=== PATIENT | female | born 1985 | race Caucasian/White ===

== ENCOUNTER 2016-12-15 10:42 | Outpatient (CLI) | payer OTHER ==
[~2016-12-15] VITALS: Ht 172.7 cm; Wt 104.0 kg
[2016-12-15 11:14] VITALS: Ht 172.7 cm; Wt 104.0 kg
[2016-12-15 11:15] VITALS: BP 134/73; PULSE 90; RESP 18
--- NOTE | 2016-12-15 12:19 | RADRPT ---
PROCEDURE: US OB with biophysical profile. CLINICAL INDICATION: DFM TECHNIQUE: Multiple sonographic images of the pelvis were obtained. The images were reviewed on a PACS workstation. COMPARISON: No prior studies are available for comparison. FINDINGS: The cervix is closed with a length of . There is a posterior grade 0 placenta. There is a single viable intrauterine gestation. Cardiac activity is present with 146 beats per min natalie. There is a cephalic presentation. Measurements were made in order to determine age. The results are as follows: BPD =9.03 cm: 36 weeks 4 days. HC =32.52 cm: 36-week 6 days. AC =32.92 cm: 36 weeks 6 days. FL =7.15 cm: 36 weeks 4 days.. Estimated gestational age of approximately 36 weeks 5 days plus or minus 2 weeks 4 days. . The estimated date of delivery is 01/07/2017.. The EFW = 3023 g plus or minus 453.38 g. . The heart, intracranial contents, spine, stomach, kidneys, bladder and cord insertion are visualized and without abnormality. The placenta is posterior, grade grade 1. There is no evidence for an abruption or placenta previa. Amniotic fluid volume is normal. And amniotic fluid index was not performed. There are no adnexal masses.. Biophysical profile:2/2 Gross body movement:2/2 tone:2/2 breathin/2 Amniotic fluid index:2/2 Biophysical profile total: 10/25 IMPRESSION: 1. A single viable fetus is identified. 2. AUA: 36 weeks 5 days plus or minus 2 weeks 4 days. 3. JUDSON (AUA): January 07, 2017. 3. Normal biophysical profile. RPTAT:AAJJ Physician Beena Date Time Electronically viewed and signed by Physician Beena on 12/15/2016 12:19 HERON/
--- NOTE | 2016-12-15 12:19 | RADRPT ---
PROCEDURE: US OB. CLINICAL INDICATION: DFM TECHNIQUE: Multiple sonographic images of the pelvis were obtained. The images were reviewed on a PACS workstation. COMPARISON: No prior studies are available for comparison. FINDINGS: The cervix is closed with a length of . There is a posterior grade 0 placenta. There is a single viable intrauterine gestation. Cardiac activity is present with 146 beats per min [place]. There is a cephalic presentation. Measurements were made in order to determine age. The results are as follows: BPD =9.03 cm: 36 weeks 4 days. HC =32.52 cm: 36-week 6 days. AC =32.92 cm: 36 weeks 6 days. FL =7.15 cm: 36 weeks 4 days.. Estimated gestational age of approximately 36 weeks 5 days plus or minus 2 weeks 4 days. . The estimated date of delivery is 01/07/2017.. The EFW = 3023 g plus or minus 453.38 g. . The heart, intracranial contents, spine, stomach, kidneys, bladder and cord insertion are visualized and without abnormality. The placenta is posterior, grade grade 1. There is no evidence for an abruption or placenta previa. Amniotic fluid volume is normal. And amniotic fluid index was not performed. There are no adnexal masses.. Biophysical profile:2/2 Gross body movement:2/2 tone:2/2 breathin/2 Amniotic fluid index:2/2 Biophysical profile total: 10/25 IMPRESSION: 1. A single viable fetus is identified. 2. AUA: 36 weeks 5 days plus or minus 2 weeks 4 days. 3. JUDSON (AUA): January 07, 2017. 3. Normal biophysical profile. RPTAT:AAJJ Physician Beena Date Time Electronically viewed and signed by Physician Beena on 12/15/2016 12:18 HERON/
--- NOTE | 2016-12-15 13:38 | CONS ---
Date/Time of Note Date/Time of Note DATE: 12/15/16 TIME: 13:25 Consultation Date/Type/Reason Admit Date/Time December 15, 2016 OB triage consult. This patient is a 31 years old 3 para 2 0 with estimated date of confinement of January 09, 2017 which makes her 36 weeks and 3 days today. She came to triage complaining of decreased movement since this morning. On examination she is a well-developed well-nourished lady. With fairly rare contractions every 8-10 minutes her general vital signs appear to be normal with blood pressure 134/73 pulse rate of 90 respiration 18 temperature 98. On pelvic examination the cervix is closed and posterior freely thick head at - 2 station membranes are intact. Subjective hx not possible: pt non-verbal Constitutional: No chills, No diaphoresis, No disoriented, No febrile, No improved, No no complaints, No other, No poor po, No requiring IVF, No requiring O2 Eyes: No discharge, No no complaints, No other, No pain, No redness, No visual change ENT: No bleeding, No congestion, No discharge, No dysphagia, No no complaints, No other, No pain, No sore throat Respiratory: No cough, No no complaints, No other, No pain, No pleuritic pain, No shortness of breath, No sputum, No wheezing Cardiovascular: No chest pain, No edema, No lightheadedness, No no complaints, No orthopenea, No other, No palpitations, No paroxysmal nocturnal dyspnea Gastrointestinal: No blood, No constipation, No decreased appetite, No diarrhea , No flatus, No nausea, No no complaints, No other, No pain, No passing stool, No vomiting Genitourinary: other (As I mentioned on pelvic exam the cervix was closed and long), No bleeding, No discharge, No dysuria, No flank pain, No hematuria, No no complaints Musculoskeletal: No back pain, No bone/joint pain, No neck pain, No no complaints, No other, No restricted range of motion, No swelling Skin: No bruising, No erythema, No laceration, No no complaints, No other, No pruritis, No rash, No skin lesions Neurologic: No confusion, No dizziness, No focal-weakness, No headache, No no complaints, No other, No seizure, No syncope Endocrine: other (Knee jerk reflexes are normal), No dry skin, No no complaints, No polydypsia, No polyuria, No temp intolerance Additional Comments Ultrasound study report is a single viable intrauterine gestation with heart total 1 46 bpm placenta was posterior no evidence of previa the estimated age was 36 weeks and 5 days 2 weeks estimated date of confinement was estimated weight was 3023 452 grams her biophysical profile 10/25 Disposition. We D normal finding lack of evidence of labor and closed cervix patient was discharged home. Advised to do kick count and return to the triage area for any evidence of labor or rupture of membranes or low movement. Social History Smoking Status: Never smoker Exam/Review of Systems Vital Signs Vitals Vital Signs Date Time Temp Pulse Resp B/P Pulse Ox O2 Delivery O2 Flow Rate FiO2 12/15/16 11:15 98.0 90 18 134/73 ITALO ZHU MD Dec 15, 2016 13:38
== END 2016-12-15 13:29 | disposition home or self-care (01) ==
LOC: OBT 10:42 → L-D 10:42 → OBT 13:29
PROVIDERS: ATTEND Obstetrics & Gynecology
DX: O36.8130 Decreased fetal movements, third trimester, not applicable or unspecified (principal); Z3A.36 36 weeks gestation of pregnancy
CPT/HCPCS: 76815; 76818; Z7500; G0463

== ENCOUNTER 2017-01-07 06:00 | Inpatient (IN) | payer OTHER ==
[~2017-01-07] VITALS: Ht 172.7 cm; Wt 105.0 kg
[2017-01-07 06:29] VITALS: Ht 172.7 cm; Wt 105.0 kg
[2017-01-07 06:31] VITALS: BP 116/77; PULSE 96; RESP 18
[2017-01-07] MEDS: LACTATED RINGER'S 1,000 ML IV SCH ×2 (06:54→16:16)
[2017-01-07] MEDS ORDERED: MISOPROSTOL 200 MCG TAB PR PRN ×2 (07:00→23:00)
[2017-01-07] MEDS ORDERED: BUTORPHANOL 2 MG INJ IV PRN ×2 (07:00)
[2017-01-07] MEDS ORDERED: CARBOPROST 250 MCG INJ IM PRN ×2 (07:00→23:00)
[2017-01-07] MEDS ORDERED: OXYTOCIN 30 UNITS/LR 500 ML IV SCH ×3 (07:00→08:30)
[2017-01-07] MEDS ORDERED: AMPICILLIN 2 GM/NS (PMX) 100 ML IV ONE (07:00)
[2017-01-07] MEDS ORDERED: OXYTOCIN 30 UNITS/LR 500 ML IV PRN ×2 (07:00→23:00)
[2017-01-07] MEDS ORDERED: IBUPROFEN 600 MG TAB PO PRN (07:00)
[2017-01-07] MEDS ORDERED: LACTATED RINGER'S 1,000 ML IV PRN (07:00)
[2017-01-07] MEDS ORDERED: LIDOCAINE 1% (MPF) 30 ML INJ INJ PRN (07:00)
[2017-01-07] MEDS ORDERED: METHYLERGONOVINE 0.2 MG INJ IM PRN ×2 (07:00→23:00)
[2017-01-07 07:31] LABS: BASOPHILS % 0.4 % (0.0-2.0); EOSINOPHILS % 0.6 % (0.0-7.0); HEMOGLOBIN 12.6 g/dl (12.0-16.0); LYMPHOCYTES # 1.3 10^3/ul (0.8-2.9); MEAN CORPUSCULAR HGB CONC 33.2 g/dl (32.0-37.0); MEAN CORPUSCULAR VOLUME 87.6 fl (82.0-101.0); MEAN PLATELET VOLUME 11.1 fl (7.4-10.4); MONOCYTE # 0.5 10^3/ul (0.3-0.9); MONOCYTES % 8.1 % (0.0-11.0); NEUTROPHIL # 4.7 10^3/ul (1.6-7.5); NEUTROPHILS % 70.4 % (39.0-77.0); PLATELET COUNT 170 10^3/UL (140-415); RED BLOOD COUNT 4.34 10^6/ul (4.20-5.40); RED CELL DISTRIBUTION WIDTH 13.9 % (11.5-14.5); WHITE BLOOD COUNT 6.7 10^3/ul (4.8-10.8)
[2017-01-07 07:52] LABS: INR 0.91; PROTIME 12.3 Sec (12.2-14.2)
[2017-01-07 07:53] LABS: PARTIAL THROMBOPLASTIN TIME 30.4 Sec (25.0-35.0)
--- NOTE | 2017-01-07 09:41 | RADRPT ---
PROCEDURE: US OB. CLINICAL INDICATION: Macrosomia TECHNIQUE: Multiple sonographic images of the pelvis were obtained. COMPARISON: No prior studies are available for comparison. FINDINGS: There is a single live intrauterine gestation gestational age of 37 weeks 6 days. Minimal amniotic fluid. Estimated weight 3293 g +/- 493.95 g Estimated day of delivery 01/22/2017 Cardiac activity is present with 146.25 beats per minute. There is a vertex presentation. The placenta is posterior grade 1. Measurements were made in order to determine age. The results are as follows: BPD =9.3 cm HC =33.53 cm AC =33.74 cm FL =7.34 cm. HC/AC = 0.99 Anatomic evaluation is limited due to lack of amniotic fluid. There are no adnexal masses. IMPRESSION: 1. Single viable intrauterine gestation of approximately 37 weeks 6 days. The estimated date of del rojelio is 01/22/2017. 2. Estimated weight 3293 g +/- 493.95 g RPTAT: HH Physician Kelsie Date Time Electronically viewed and signed by Physician Kelsie on 01/07/2017 09:41 YONI/
[2017-01-07] MEDS: AMPICILLIN 1 GM/NS (PMX) 50 ML IV SCH ×2 (12:00→16:33)
[2017-01-07 17:25] LABS: AADO2 Cord Arterial 52.5 mmHg; Arterial Cord Blood pCO2 62.4 mmHG (25-50); CBA Base Excess -5.6 mmol/L; CBA Oxygen Sat 45.9 mmHG; CBA Total Hemglobin 18.4 g/dl; Cord Blood Arterial pO2 22.5 mmHG (15.0-45.0); Fraction OxyHgb Cord Arterial 44.8 %; MODE ROOM AIR; MetHgb Cord Arterial 1.3 %; Sample Type CBA
[2017-01-07 17:29] LABS: CBV Base Excess -6.1 mmol/L; CBV COHb 1.8 %; CBV Oxygen Sat 83.5 mmHG; CBV Total Hemglobin 17.8 g/dl; Cord Blood Venous AADO2 69.3 mmHg; Cord Blood Venous pO2 37.6 mmHG (15.0-45.0); Fraction OxyHgb Cord Venous 81.4 %; MODE ROOM AIR; MetHgb Cord Venous 0.7 %; Sample Type CBV
[2017-01-07 21:40] VITALS: BP 111/65; PULSE 64; RESP 17
[2017-01-07] MEDS ORDERED: LACTATED RINGER'S 1,000 ML IV* SCH (22:31)
[2017-01-07] MEDS ORDERED: OXYCODONE/ASPIRIN (4.88/325) TAB PO PRN ×2 (23:00)
[2017-01-07] MEDS ORDERED: WITCH HAZEL/GLYCERIN PAD PR PRN (23:00)
[2017-01-07] MEDS ORDERED: DIBUCAINE 1% 30 GM OINT PR PRN (23:00)
[2017-01-07] MEDS ORDERED: METHYLERGONOVINE 0.2 MG TAB PO PRN (23:00)
[2017-01-07] MEDS ORDERED: SENNA/DOCUSATE NA (8.6MG/50MG) TAB PO PRN (23:00)
[2017-01-07] MEDS ORDERED: LANOLIN 7 GM TUBE TOP PRN (23:00)
[2017-01-07] MEDS ORDERED: ACETAMINOPHEN 325 MG TAB PO PRN (23:00)
[2017-01-07] MEDS ORDERED: BENZOCAINE 20% 56 ML SPRAY TOP PRN (23:00)
[2017-01-07] MEDS: IBUPROFEN 600 MG TAB PO SCH (23:10)
[2017-01-08] VITALS: BP 115/77; PULSE 60; RESP 17
[2017-01-08 04:00] VITALS: BP 115/72; PULSE 77; RESP 18
[2017-01-08] MEDS: IBUPROFEN 600 MG TAB PO SCH ×4 (05:39→23:35)
[2017-01-08] MEDS: OXYTOCIN 30 UNITS/LR 500 ML IV SCH ×2 (07:36→07:37)
[2017-01-08 09:06] VITALS: BP 111/57; PULSE 77; RESP 19
[2017-01-08 15:30] VITALS: BP 98/68; PULSE 70; RESP 18
[2017-01-08] MEDS ORDERED: BISACODYL 10 MG SUPP PR ONE (16:30)
[2017-01-08] MEDS ORDERED: MAGNESIUM HYDROXIDE 30ML CUP PO ONE (16:30)
[2017-01-08 20:00] VITALS: BP 116/63; PULSE 83; RESP 18
--- NOTE | 2017-01-08 23:27 | PREOPHP ---
DATE OF ADMISSION: 01/07/2017 HISTORY OF PRESENT ILLNESS: This is a 31-year-old lady, 3, para 2, EDC January 09, 2017 at 39-5/7 weeks, consulted and admitted in early labor and for Pitocin augmentation. She had care in my [place] office. The care was uneventful. PAST PERSONAL HISTORY: No history of diabetes, TB, asthma. ALLERGIES: NONE. SOCIAL HISTORY: Patient does not smoke. She does not drink. MEDICATIONS: She does not take any drugs, except her iron and vitamins. [employer] HISTORY: She had menarche at the age of 12, every 28 days interval, 3-4 days duration and moderate in amount. FAMILY HISTORY: Noncontributory. OB HISTORY: She is 3, para 2. First delivery in 2009; second, 2012, all normal deliveries. REVIEW OF SYSTEMS: CARDIOVASCULAR: No chest pain. LUNGS: No cough. GASTROINTESTINAL: No diarrhea, no vomiting. GENITOURINARY: No dysuria. PHYSICAL EXAMINATION: GENERAL: Conscious, coherent lady, and not acute distress. VITAL SIGNS: Her blood pressure 120/80, pulse rate 80 per minute, respirations 16 per minute. BREASTS: Within normal limits. ABDOMEN: Soft. No organomegaly. Fundic height 38 cm. heart tones 140 per minute. PELVIC EXAM: On admission revealed the cervix to be 2-3 cm dilated, 100 percent effaced, station -1, in cephalic presentation, with the bag of water intact. EXTREMITIES: No pedal edema. ADMITTING DIAGNOSES: Thirty-nine and 5/7 weeks intrauterine , in early labor. COURSE IN ED: Patient had an ultrasound done, and then she was given Pitocin augmentation, and patient progressed well. She had artificial rupture of membranes. scalp electrode and IUPC was inserted at 1621, and she progressed well. She did not receive any labor epidural. She received IV pain medication. Dictated By: Holli Reese MD /christina/sabiha /Document#: [id number] CC: Holli Reese MD;*EndCC* MTDD
--- NOTE | 2017-01-08 23:33 | OPR ---
DATE OF OPERATION: 01/07/2017 INDICATIONS: This is a 31-year-old lady, 3, para 2, at 39-5/7 weeks, admitted in early labor and for Pitocin augmentation. HISTORY OF THE PRESENT ILLNESS: See dictated History and Physical. PHYSICAL EXAMINATION: See dictated History and Physical. ADMITTING DIAGNOSIS: 39 and 5/7 weeks, in early labor. OPERATIVE PROCEDURE: She had a ultrasound done for EFW, and she was given Pitocin augmentation. Patient refused labor epidural. She received some Stadol. Patient progressed well. At the time of my visit, I did activate rupture of membrane. scalp electrode and IUPC was inserted. She delivered a healthy baby boy, Apgars 9 and 9 on 01/07/2017, weighing 7 pounds, 6 ounces, 1704 grams, over 21 inches long. Dictated By: Holli Reese MD /christina/sabiha /Document#: [id number] CC: Holli Reese MD
[2017-01-09 04:00] VITALS: BP 122/70; PULSE 85; RESP 18
[2017-01-09] MEDS: IBUPROFEN 600 MG TAB PO SCH ×2 (06:02→11:32)
[2017-01-09 08:30] VITALS: BP 128/72; PULSE 70; RESP 18
[2017-01-09] MEDS ORDERED: DIPHTH/TET/ACEL PERTUSS (ADULT) 0.5 ML VIAL IM* ONE (09:00)
[2017-01-09 16:30] VITALS: BP 117/64; PULSE 76; RESP 19
== END 2017-01-09 17:55 | disposition home or self-care (01) | DRG 775 ==
LOC: L-D 06:10 → PP1 21:44
PROVIDERS: ADMIT Obstetrics & Gynecology; ATTEND Obstetrics & Gynecology
PROC: 3E0P3VZ Introduction of Hormone into Female Reproductive, Percutaneous Approach (ICD-10-PCS; 2017-01-07)
PROC: 10E0XZZ Delivery of Products of Conception, External Approach (ICD-10-PCS; principal; 2017-01-07 06:00)
DX: O80 Encounter for full-term uncomplicated delivery (principal); Z37.0 Single live birth; Z3A.39 39 weeks gestation of pregnancy
CPT/HCPCS: 36415; 36600; 76815; 82803; 85014; 85018; 85025; 85610; 85730; 86592; 86900; 86901; 87340; 90715; 99464; J0290; J2590; J7120

== ENCOUNTER 2017-10-14 11:18 | Emergency (ER) | END 2017-10-14 15:41 | disposition home or self-care (01) ==

== ENCOUNTER 2018-08-04 13:03 | Inpatient (IN) | payer OTHER ==
[~2018-08-04] VITALS: Ht 172.7 cm; Wt 103.0 kg
[~2018-08-04 13:03] MED LIST: ACET500C5 PO; CEPH-443 PO
[2018-08-04 13:44] VITALS: BP 120/76; PULSE 78; RESP 18
[2018-08-04 13:46] VITALS: Ht 172.7 cm; Wt 103.0 kg
[2018-08-04] MEDS: LACTATED RINGER'S 1,000 ML IV SCH ×3 (13:57→19:50)
[2018-08-04] MEDS ORDERED: METHYLERGONOVINE 0.2 MG INJ IM PRN ×2 (14:00→21:00)
[2018-08-04] MEDS ORDERED: OXYTOCIN 30 UNITS/LR 500 ML IV PRN ×2 (14:00→21:00)
[2018-08-04] MEDS ORDERED: LIDOCAINE 1% (MPF) 30 ML INJ INJ PRN (14:00)
[2018-08-04] MEDS ORDERED: BUTORPHANOL 2 MG INJ IV PRN ×2 (14:00)
[2018-08-04] MEDS ORDERED: MISOPROSTOL 200 MCG TAB PR PRN ×2 (14:00→21:00)
[2018-08-04] MEDS ORDERED: AMPICILLIN 2 GM/NS (PMX) 100 ML IV ONE (14:00)
[2018-08-04] MEDS ORDERED: IBUPROFEN 600 MG TAB PO PRN (14:00)
[2018-08-04] MEDS ORDERED: OXYTOCIN 30 UNITS/LR 500 ML IV SCH ×4 (14:00→20:59)
[2018-08-04] MEDS ORDERED: CARBOPROST 250 MCG INJ IM PRN ×2 (14:00→21:00)
--- NOTE | 2018-08-04 15:46 | PREAC ---
Date/Time of Note Date/Time of Note DATE: 08/04/18 TIME: 15:45 Anesthesia Eval and Record Evaluation Time Pre-Procedure Interview DATE: 08/04/18 TIME: 15:45 Age 33 Sex female NPO: 8 hrs Preoperative diagnosis in labor Planned procedure Labor epidural Past Medical History Past Medical History: None Surgery & Anesthesia Issues No known issue Meds Anticoagulation: No Beta Charlette within 24 hr: No Reason Beta Charlette not given: Pt. not on B-Charlette Active Scripts Acetaminophen* (Tylophen*) 500 Mg Capsule, 1 CAP PO Q6H PRN for PAIN AND OR YASMEEN VATED TEMP, #20 CAP Prov:QUANG CABA PA-C 10/14/17 Cephalexin* (Keflex*) 500 Mg Capsule, 500 MG PO QID for 7 Days, CAP Prov:QUANG CABA PA-C 10/14/17 Current Medications Lactated Ringer's 1,000 ml @ 125 mls/hr Q8H IV Last administered on 08/04/18at 13:57; Admin Dose 125 MLS/HR; Start 08/04/18 at 13:47 Ampicillin 50 ml @ 100 mls/hr Q4H IV ; Start 08/04/18 at 18:00 Butorphanol Tartrate (Stadol) 1 mg Q2H PRN IV .PAIN SCALE 1-5; Start 08/04/18 at 14:00 Butorphanol Tartrate (Stadol) 2 mg Q2H PRN IV .PAIN SCALE 6-10; Start 08/04/18 at 14:00 Lidocaine (Xylocaine 1% (Mpf)) 30 ml ONCE PRN INJ .EPISIOTOMY; Start 08/04/18 at 14:00 Oxytocin/Lactated Ringer's 500 ml @ 500 mls/hr ONCE POST IV ; Start 08/04/18 at 14:00 Oxytocin/Lactated Ringer's 500 ml @ 125 mls/hr POST IV ; Start 08/04/18 at 14:00 Ibuprofen (Motrin) 600 mg ONCE PRN PO .PAIN 1-5; Start 08/04/18 at 14:00 Oxytocin/Lactated Ringer's 500 ml @ 0 mls/hr ONCE PRN IV .VAGINAL BLEEDING; Start 08/04/18 at 14:00 Methylergonovine Maleate (Methergine) 0.2 mg ONCE PRN IM .VAGINAL BLEEDING; Start 08/04/18 at 14:00 Carboprost Tromethamine (Hemabate) 250 mcg ONCE PRN IM .VAGINAL BLEEDING; Start 08/04/18 at 14:00 Misoprostol (Cytotec) 1,000 mcg ONCE PRN MI .VAGINAL BLEEDING; Start 08/04/18 at 14:00 Oxytocin/Lactated Ringer's 500 ml @ 0 mls/hr FOR AUGMENTATION IV ; Start 08/04 at 16:00 Meds reviewed: Yes Allergies Coded Allergies: No Known Allergy (Unverified , 12/15/16) Allergies Reviewed: Yes Labs/Studies Labs Reviewed: Reviewed by anesthesiologist Result Diagram: 08/04/18 1342 Laboratory Tests 08/04/18 13:42 test: Positive Pre-procedure Exam Last vitals Vital Signs Date Temp Pulse Resp B/P (MAP) Pulse Ox O2 O2 Flow FiO2 Time Delivery Rate 08/04/18 98.3 78 18 120/76 13:44 (91) Airway: Adequate mouth opening Mallampati: Mallampati II Teeth: Normal Lung: Normal Heart: Normal ASA Physical Status ASA physical status: 2 Emergency: None Planned Anesthetic Neuraxial: Epidural Pre-operative Attestations Prior to commencing anesthesia and surgery, the patient was re-evaluated, there was verification of: *The patient's identity *The results of appropriate recent lab work and preoperative vital signs *The above evaluation not changing prior to induction *Anesthetic plan, risk benefits, alternative and complications discussed with patient/family; questions answered; patient/family understands, accepts and wishes to proceed. VIVIANA SHAW MD August 04, 2018 15:46
[2018-08-04] MEDS ORDERED: FENTAnyl 2MCG/ML-ROPIV 0.2% 100 ML ONE (15:48)
[2018-08-04] MEDS ORDERED: FENTAnyl 2MCG/ML-ROPIV 0.2% 100 ML BAG EPI SCH (16:00)
[2018-08-04] MEDS ORDERED: DIPHENHYDRAMINE 50 MG INJ IV PRN (16:00)
[2018-08-04] MEDS ORDERED: ONDANSETRON 4 MG INJ IV PRN ×2 (16:00→21:00)
[2018-08-04] MEDS ORDERED: EPHEDrine 25 MG/5 ML SYG IV PRN (16:00)
[2018-08-04] MEDS ORDERED: NALOXONE (0.4 MG/ML) INJ IV PRN (16:00)
[2018-08-04] MEDS: AMPICILLIN 1 GM/NS (PMX) 50 ML IV SCH ×2 (17:39→22:00)
[2018-08-04] MEDS ORDERED: LACTATED RINGER'S 1,000 ML IV* SCH (20:59)
--- NOTE | 2018-08-04 20:59 | OPPN ---
Date/Time of Note Date/Time of Note DATE: 08/04/18 TIME: 20:58 Operative Report Planned Procedure Procedure date August 04, 2018 Procedure(s) Performed by see signature line Header Up: A 2nd Header Up none Pre-procedure diagnosis 38 WEEKS IUP IN LABOR [id number] Anesthesia Type: [id number] epidural Post-Procedure Post-procedure diagnosis 38 WEEKS IUP IN LABOR Findings Live Baby BOY, Apgars 9 and 9, weight [id number] Estimated Blood Loss: 200 - 300 mls Specimen(s) none Grafts/Implant(s) none Complication(s) none TERRANCE ARORA MD August 04, 2018 20:59
[2018-08-04] MEDS ORDERED: NA PHOSPHATE/BIPHOS 133 ML ENEMA PR PRN (21:00)
[2018-08-04] MEDS ORDERED: ZOLPIDEM 5 MG TAB PO PRN (21:00)
[2018-08-04] MEDS ORDERED: BENZOCAINE 20% 56 ML SPRAY TOP PRN (21:00)
[2018-08-04] MEDS ORDERED: WITCH HAZEL/GLYCERIN PAD PR PRN (21:00)
[2018-08-04] MEDS ORDERED: METHYLERGONOVINE 0.2 MG TAB PO PRN (21:00)
[2018-08-04] MEDS ORDERED: MAGNESIUM HYDROXIDE 30ML CUP PO PRN (21:00)
[2018-08-04] MEDS ORDERED: DIPHENHYDRAMINE 25 MG CAP PO PRN (21:00)
[2018-08-04] MEDS ORDERED: HYDROCODONE/APAP (5/325) TAB PO PRN ×2 (21:00)
[2018-08-04] MEDS: SENNA/DOCUSATE NA (8.6MG/50MG) TAB PO SCH (21:00)
[2018-08-04 22:10] VITALS: BP 117/65; PULSE 81; RESP 20
[2018-08-05] MEDS: LANOLIN HPA 1 PKT TOP PRN (00:06)
[2018-08-05] MEDS: IBUPROFEN 600 MG TAB PO PRN ×3 (04:10→16:41)
--- NOTE | 2018-08-05 06:40 | PREOPHP ---
DATE OF ADMISSION: 08/04/2018 HISTORY OF PRESENT ILLNESS: This is a 33-year-old lady, 5, para 3, EDC 08/18/2018, 38 weeks , admitted to labor and delivery area in active labor. She had care in [facility] and the care was uneventful. She started to have contractions about a few hours prior to admission and got worse up to the time of admission. PAST PERSONAL HISTORY: No history of diabetes, TB, asthma. ALLERGIES: NO ALLERGIES. SOCIAL HISTORY: Patient does not smoke. She does not drink. MEDICATIONS: She does not take any drugs except her iron and vitamins. GYNECOLOGIC HISTORY: She had menarche at the age of 12, every 28 days' interval, 3 to 4 days' durati on, and moderate in amount. FAMILY HISTORY: Noncontributory. OBSTETRICAL HISTORY: She is 5, para 3. She had 3 normal deliveries. First delivery was in 2009, second 2012, third in 2016, all normal deliveries. The largest baby weighed 9 pounds. She had 1 spontaneous in 2018 at 6 weeks. REVIEW OF SYSTEMS: CARDIOVASCULAR: No chest pains. RESPIRATORY: No cough. GASTROINTESTINAL: No diarrhea, no vomiting. GENITOURINARY: No dysuria. PHYSICAL EXAMINATION: GENERAL: Reveals a conscious, coherent lady and in no acute distress. VITAL SIGNS: Her blood pressure 120/80, pulse rate 80 per minute, respirations 16 per minute. BREASTS, HEART AND LUNGS: Within normal limits. ABDOMEN: Soft, fundic height 38 cm. heart tones 140 per minute. PELVIC: On admission revealed the cervix to be 4 to 5 cm dilated, 100% effaced, station 0 in cephali c presentation with the bag of water intact. EXTREMITIES: No pedal edema. ADMITTING DIAGNOSIS: A 38 weeks intrauterine in labor. PLAN: The plans of delivery were explained to the patient as to go for vaginal delivery. The risks, benefits and alternatives to vaginal delivery and were explained to the patient. She want ed to go for vaginal delivery. The patient received labor epidural. She was given Pitocin augmentat ion and she progressed well. At 4:17 p.m., she had artificial rupture of membranes. scalp cris ctrode and IUPC was inserted and she progressed well. Dictated By: TERRANCE SINGH/SHER Conf#: [id number] DID#: [id number] CC: TERRANCE ARORA MD;*[facility]*
--- NOTE | 2018-08-05 07:02 | OPR ---
DATE OF OPERATION: 08/04/2018 PREOPERATIVE DIAGNOSIS: This is a 33-year-old lady, 5, para 3, EDC 08/18/2018 at 38 weeks pr egnant, admitted in active labor. HISTORY OF PRESENT ILLNESS: See dictated history and physical. PHYSICAL EXAMINATION: See dictated history and physical. ADMITTING DIAGNOSIS: This is a 38 weeks intrauterine , in labor. PROGRESS OF LABOR: See dictated history and physical. DESCRIPTION OF PROCEDURE: The patient progressed well. She received labor epidural. She had a norm al spontaneous vaginal delivery 08/04/2018, at 2031, delivering a healthy baby boy, Apgars 9 and 9, w eighing at 3035 grams, 6 pounds 11 ounces, 19-1/2 inches long over intact perineum. She received lab or epidural and over an intact perineum. The placenta was delivered spontaneously and complete. Man ual exploration of the uterus revealed no membranes left behind. The cervix, vagina and vulva were free of hematoma. The position was direct occiput anterior. There were 3 vessels in the cord. The placenta was normal with a smooth shiny side and a pinkish maternal side. The patient greg erated the delivery well. Estimated blood loss about 300 mL. Vital signs were stable during and aft er the delivery. Dictated By: TERRANCE ARORA MD NS/NTS Conf#: [id number] DID#: [id number] CC: TERRANCE ARORA MD;*EndCC*
[2018-08-05 07:45] VITALS: BP 108/68; PULSE 88; RESP 18
[2018-08-05] MEDS: SENNA/DOCUSATE NA (8.6MG/50MG) TAB PO SCH ×2 (09:09→21:00)
--- NOTE | 2018-08-05 09:28 | PAC ---
Date/Time of Note Date/Time of Note DATE: 08/05/18 TIME: 09:28 Post-Anesthesia Notes Post-Anesthesia Note Last documented vital signs Vital Signs Date Temp Pulse Resp B/P (MAP) Pulse Ox O2 O2 Flow FiO2 Time Delivery Rate 08/05/18 99.0 88 18 108/68 Room Air 07:45 (81) Activity: WNL Respiratory function: WNL Cardiovascular function: WNL Mental status: Baseline Pain reasonably controlled: Yes Hydration appropriate: Yes Nausea/Vomiting absent: Yes VIVIANA SHAW MD August 05, 2018 09:28
[2018-08-05 15:36] VITALS: BP 116/63; PULSE 73; RESP 18
--- NOTE | 2018-08-05 18:33 | PN ---
Date/Time of Note Date/Time of Note DATE: 08/05/18 TIME: 18:32 Assessment/Plan VTE Prophylaxis Risk score (from Ns)>0 risk: 1 SCD applied (from Ns): No SCD contraindicated: low risk/ambulating Pharmacological prophylaxis: NA/contraindicated Pharm contraindication: low risk/ambulating Lines/Catheters IV Catheter Type (from [facility]): Peripheral IV Assessment/Plan Assessment/Plan POST DAY 1 CHRONIC IRON DEFICIENCY ANEMIA HOME TOMORROW RETURN TO CLINIC IN 2 WEEKS CONTINUE WITH VITAMINS OD AND FERROUS SULFATE PO TID DIET ADVISED COUNSELED INSTRUCTED CALL OFFICE IF THERE IS ANY PROBLEMS OR CONCERN Result Diagram: 08/05/18 0713 Results 24hrs Laboratory Tests Test 08/05/18 07:13 White Blood Count 11.7 #H Red Blood Count 3.82 L Hemoglobin 10.9 L Hematocrit 33.4 L Mean Corpuscular Volume 87.4 Mean Corpuscular Hemoglobin 28.5 L Mean Corpuscular Hemoglobin Concent 32.6 Red Cell Distribution Width 15.4 H Platelet Count 164 Mean Platelet Volume 10.8 H Immature Granulocytes % 1.900 H Neutrophils % 81.8 H Lymphocytes % 8.0 L Monocytes % 7.7 Eosinophils % 0.3 Basophils % 0.3 Nucleated Red Blood Cells % 0.0 Immature Granulocytes # 0.220 H Neutrophils # 9.6 H Lymphocytes # 0.9 Monocytes # 0.9 Eosinophils # 0.0 Basophils # 0.0 Nucleated Red Blood Cells # 0.0 Subjective 24 Hr Interval Summary Free Text/Dictation FEELS GOOD, GOOD URINE OUTPUT, GOOD BOWEL MOVEMENT Exam/Review of Systems Exam Vitals Vital Signs Date Temp Pulse Resp B/P (MAP) Pulse Ox O2 O2 Flow FiO2 Time Delivery Rate 08/05/18 98.1 73 18 116/63 Room Air 15:36 (80) Intake and Output 08/04/18 08/04/18 08/05/18 1515:00 23:00 07:00 IntakeIntake Total 4225 ml 525 ml OutputOutput Total 593 ml 400 ml BalanceBalance 3632 ml 125 ml Exam VITAL SIGNS STABLE: YES AFEBRILE: YES BREAST NOT ENGORGED, NON-TENDER, NO APPRECIABLE MASS: YES LUNGS CLEAR, NO RALES, WHEEZES, RHONCHI: YES SINUS RHYTHM WITHOUT MURMUR: YES ABDOMEN: NON-TENDER FUNDUS: BELOW UMBILICUS BOWEL SOUNDS: PRESENT UTERUS: FIRM INTACT PERINEUM: YES LOCHIA: LIGHT DEEP TENDON REFLEXES: 0 EXTREMITIES: NO CALF TENDERNESS EDEMA SCALE: NONE Results Results 24hrs Laboratory Tests Test 08/05/18 07:13 White Blood Count 11.7 #H Red Blood Count 3.82 L Hemoglobin 10.9 L Hematocrit 33.4 L Mean Corpuscular Volume 87.4 Mean Corpuscular Hemoglobin 28.5 L Mean Corpuscular Hemoglobin Concent 32.6 Red Cell Distribution Width 15.4 H Platelet Count 164 Mean Platelet Volume 10.8 H Immature Granulocytes % 1.900 H Neutrophils % 81.8 H Lymphocytes % 8.0 L Monocytes % 7.7 Eosinophils % 0.3 Basophils % 0.3 Nucleated Red Blood Cells % 0.0 Immature Granulocytes # 0.220 H Neutrophils # 9.6 H Lymphocytes # 0.9 Monocytes # 0.9 Eosinophils # 0.0 Basophils # 0.0 Nucleated Red Blood Cells # 0.0 Medications Medication Current Medications Lidocaine (Xylocaine 1% (Mpf)) 30 ml ONCE PRN INJ .EPISIOTOMY; Start 08/04/18 at 14:00 Oxytocin/Lactated Ringer's 500 ml @ 500 mls/hr ONCE POST IV ; Start 08/04/18 at 14:00 Oxytocin/Lactated Ringer's 500 ml @ 125 mls/hr POST IV Last administered on 08/04/18at 20:44; Admin Dose 125 MLS/HR; Start 08/04/18 at 14:00 Ibuprofen (Motrin) 600 mg ONCE PRN PO .PAIN 1-5; Start 08/04/18 at 14:00 Oxytocin/Lactated Ringer's 500 ml @ 0 mls/hr ONCE PRN IV .VAGINAL BLEEDING; Start 08/04/18 at 14:00 Methylergonovine Maleate (Methergine) 0.2 mg ONCE PRN IM .VAGINAL BLEEDING; Start 08/04/18 at 14:00 Carboprost Tromethamine (Hemabate) 250 mcg ONCE PRN IM .VAGINAL BLEEDING; Start 08/04/18 at 14:00 Misoprostol (Cytotec) 1,000 mcg ONCE PRN CA .VAGINAL BLEEDING; Start 08/04/18 at 14:00 Oxytocin/Lactated Ringer's 500 ml @ 0 mls/hr FOR AUGMENTATION IV Last administered on 08/04/18at 17:36; Admin Dose 2 MLS/HR; Start 08/04/18 at 16:00 Ephedrine Sulfate 5 mg [id number] PRN IV BLOOD PRESSURE SUPPORT; Start 08/04/18 at 16:00 Methylergonovine Maleate (Methergine) 0.2 mg Q6H PRN PO .VAGINAL BLEED; Start 08/04/18 at 21:00 Ibuprofen (Motrin) 600 mg Q6H PRN PO MILD PAIN LEVEL 1-3 Last administered on 08/05/18at 16:41; Admin Dose 600 MG; Start 08/04/18 at 21:00 Acetaminophen/ Hydrocodone Bitart ([place] (5/325)) 1 tab Q4H PRN PO MODERATE PAIN LEVEL 4-6; Start 08/04/18 at 21:00 Acetaminophen/ Hydrocodone Bitart ([place] (5/325)) 2 tab Q4H PRN PO SEVERE PAIN LEVEL 7-10; Start 08/04/18 at 21:00 Ondansetron HCl (Zofran Inj) 4 mg Q6H PRN IV NAUSEA/VOMITING; Start 08/04/18 at 21:00 Diphenhydramine HCl (Benadryl) 25 mg Q6H PRN PO .PRUTITUS; Start 08/04/18 at 21:00 Zolpidem Tartrate (Ambien) 5 mg QHS PRN PO .INSOMNIA; Start 08/04/18 at 21:00 Senna/Docusate Sodium (Senokot-S) 1 tab BID PO Last administered on 08/05/18at 09:09; Admin Dose 1 TAB; Start 08/04/18 at 21:00 Magnesium Hydroxide (Milk Of Mag) 30 ml Q12H PRN PO .CONSTIPATION; Start 08/04/18 at 21:00 Sodium Biphosphate/ Sodium Phosphate (Fleet Enema) 133 ml DAILY PRN CA .CONSTIPATION; Start 08/04/18 at 21:00 Witch Senait/ Glycerin (Tucks Pads) 1 pad BEDSIDE MEDICATION PRN CA .HEMORRHOID/EPISIOTOMY PAIN; Start 08/04/18 at 21:00 Benzocaine (Dermoplast [place]) 1 spray BEDSIDE MEDICATION PRN TOP .HEMMORHOID/EPISIOTOMY PAIN Last administered on 08/05/18at 00:06; Admin Dose 1 SPRAY; Start 08/04/18 at 21:00 Lanolin (Lanolin Hpa) 1 applic BEDSIDE MEDICATION PRN TOP .NIPPLES Last administered on 08/05/18at 00:06; Admin Dose 1 APPLIC; Start 08/04/18 at 21:00 Measles/Mumps/ Rubella Vaccine Live (Mmr Ii Vaccine) 0.5 ml ONCE ONCE SC* ; Start 08/06/18 at 09:00; Stop 08/06/18 at 09:01 Diphtheria/ Tetanus/Acell Pertussis (Adacel) 0.5 ml ONCE ONCE IM* ; Start 08/06/18 at 09:00; Stop 08/06/18 at 09:01 Varicella Virus Vaccine Live (Varivax Vaccine With Diluent) 1,350 unit ONCE ONCE SC* ; Start 08/06/18 at 09:00; Stop 08/06/18 at 09:01 Oxytocin/Lactated Ringer's 500 ml @ 0 mls/hr ONCE PRN IV .VAGINAL BLEEDING; Start 08/04/18 at 21:00 Methylergonovine Maleate (Methergine) 0.2 mg ONCE PRN IM .VAGINAL BLEEDING; Start 08/04/18 at 21:00 Carboprost Tromethamine (Hemabate) 250 mcg ONCE PRN IM .VAGINAL BLEEDING; Start 08/04/18 at 21:00 Misoprostol (Cytotec) 1,000 mcg ONCE PRN CA .VAGINAL BLEEDING; Start 08/04/18 at 21:00 TERRANCE ARORA MD August 05, 2018 18:33
[2018-08-05 19:50] VITALS: BP 121/65; PULSE 76; RESP 18
[2018-08-06 04:05] VITALS: BP 116/60; PULSE 75; RESP 18
[2018-08-06 08:00] VITALS: BP 113/63; PULSE 84; RESP 18
[2018-08-06] MEDS ORDERED: MEASLES,MUMPS,RUBELLA VACCINE INJ SC* ONE (09:00)
[2018-08-06] MEDS: SENNA/DOCUSATE NA (8.6MG/50MG) TAB PO SCH (09:00)
[2018-08-06] MEDS ORDERED: DIPHTH/TET/ACEL PERTUSS (ADULT) 0.5 ML VIAL IM* ONE (09:00)
[2018-08-06] MEDS ORDERED: VARICELLA VACCINE LIVE/PF 1,350 UNIT/0.5 ML ML SC* ONE (09:00)
[2018-08-06] MEDS ORDERED: PREN-99 PO (10:11)
[2018-08-06] MEDS ORDERED: FER325 PO (10:12)
[2018-08-06] MEDS: LANOLIN HPA 1 PKT TOP PRN (10:59)
--- NOTE | 2018-08-07 11:48 | DELSUM ---
Delivery Summary A-C Datetime Report Generated by CPN: 08/07/2018 11:48 DELIVERY PERSONNEL Hand Or Machine Paster: Ricafrente, Yaquelin MATERNAL INFORMATION Delivery Anesthesia: Epidural Medications in Delivery: LR 500 + 30 units pitocin Delivery QBL (ml): 300 Placenta Cultured: No Maternal Complications: None LABOR SUMMARY EDC: 08/18/2018 00:00 No. Babies in Womb: 1 Attempted: No Labor Anesthesia: Epidural LABOR INFORMATION Reason for Induction: Not Applicable Onset of Labor: 08/04/2018 02:00 Complete Dilatation: 08/04/2018 20:11 Other Ripening Agents: N/A Oxytocin: Augmentation Group B Beta Strep: Positive Antibiotics # of Doses: 2 Antibiotics Time of Last Dose: 08/04/2018 17:30 Steroids Given: None Reason Steroids Not Administered: Not Applicable MEMBRANES Membranes Rupture Method: Artificial Rupture of Membranes: 08/04/2018 16:17 Length of Rupture (hr): 4.25 Amniotic Fluid Color: Clear Amniotic Fluid Amount: Moderate Amniotic Fluid Odor: None STAGES OF LABOR Stage 1 hr: 18 Stage 1 min: 11 Stage 2 hr: 0 Stage 2 min: 21 Stage 3 hr: 0 Stage 3 min: 2 Total Time in Labor hr: 18 Total Time in Labor min: 34 VAGINAL DELIVERY Episiotomy: None Laceration Extension: N/A Laceration Type: None Laceration Repair: Not Applicable Initial Vag Sponge Count: 10 Final Vag Sponge Count: 10 Initial Vag Sharps Count: 1 Final Vag Sharps Count: 1 Sponge Count Correct: Yes; Vaginal Sweep Performed Sharps Count Correct: Yes BABY A INFORMATION Infant Delivery Date/Time: 08/04/2018 20:32 Method of Delivery: Vaginal Born in Route : No : N/A Forceps: N/A Vacuum Extraction: N/A Shoulder Dystocia : N/A SHOULDER DYSTOCIA BABY A Infant Delivery Date/Time: 08/04/2018 20:32 PRESENTATION/POSITION BABY A Presentation: Cephalic Cephalic Presentation: Vertex Vertex Position: Left Occipital Anterior Breech Presentation: N/A PLACENTA INFORMATION BABY A Placenta Delivery Time : 08/04/2018 20:34 Placenta Method of Delivery: Spontaneous Placenta Status: Delivered SCORES BABY A Heart Rate 1 min: >100 bpm Resp Effort 1 min: Good Cry Reflex Irritability 1 min: Cough/Sneeze/Pulls Away Muscle Tone 1 min: Active Motion Color 1 min: Body [place], Extremit Blue Resuscitation Effort 1 min: Tactile Stimulation SCORE 1 MIN: 9 Heart Rate 5 min: >100 bpm Resp Effort 5 min: Good Cry Reflex Irritability 5 min: Cough/Sneeze/Pulls Away Muscle Tone 5 min: Active Motion Color 5 min: Body [place], Extremit Blue Resuscitation Effort 5 min: Tactile Stimulation SCORE 5 MIN: 9 INFORMATION BABY A Gestational Age at Delivery: 38.0 Gestational Status: Early Term- 37- 38.6 Weeks Infant Outcome : Liveborn Infant Condition : Stable Infant Sex: Male IDENTIFICATION/MEDS BABY A ID Band Number: [id number] ID Band Location: Right Leg; Left Arm Sensor Applied: Yes Sensor Number: [id number] Sensor Location : Cord Clamp Vitamin K Given : Not Given Erythromycin Given: Not Given WEIGHT/LENGTH BABY A Birthweight (gm): 3035 Infant Weight (lb): 6 Infant Weight (oz): 11 Infant Length (in): 19.50 Infant Length (cm): 49.53 CORD INFORMATION BABY A No. Cord Vessels: 3 Nuchal Cord : N/A Nuchal Cord- Other: 0 True Knot: 0 Cord Blood Taken: Yes Banking/Donate Info: No Suction: Mouth; Nose ASSESSMENT BABY A Infant Complications: Multiple Variable Decels Physical Findings at Delivery: Within Normal Limits Infant Respirations: Appears Normal Endoscope Technician/ALS Called : No Infant Care By: Viri DAWSON/ Elisabeth Rivas RN Transferred To: Remains with Mother
== END 2018-08-06 11:20 | disposition home or self-care (01) | DRG 807 ==
LOC: L-D 13:03 → OBT 13:03 → UNDOADMIN 13:09 → L-D 13:09 → OBT 13:09 → L-D 13:09 → EDSTATUS 13:42 → PP1 22:25
PROVIDERS: ADMIT Obstetrics & Gynecology; ATTEND Obstetrics & Gynecology
PROC: 10E0XZZ Delivery of Products of Conception, External Approach (ICD-10-PCS; principal; 2018-08-04)
PROC: 10907ZC Drainage of Amniotic Fluid, Therapeutic from Products of Conception, Via Natural or Artificial Opening (ICD-10-PCS; 2018-08-04)
PROC: 4A1H7CZ Monitoring of Products of Conception, Cardiac Rate, Via Natural or Artificial Opening (ICD-10-PCS; 2018-08-04)
PROC: 10H073Z Insertion of Monitoring Electrode into Products of Conception, Via Natural or Artificial Opening (ICD-10-PCS; 2018-08-04)
DX: O99.02 Anemia complicating childbirth (principal); Z37.0 Single live birth; D50.9 Iron deficiency anemia, unspecified; Z3A.38 38 weeks gestation of pregnancy
CPT/HCPCS: 62322; 76815; 85025; 85610; 85730; 86592; 86850; 86900; 86901; 87340; 90716; 99464; J0290; J2590; J3010; J7120